=== PATIENT | male | born 1990 | race Caucasian/White ===

== ENCOUNTER 2022-05-25 04:33 | Emergency (ER) | payer MEDICAID ==
[~2022-05-25] VITALS: Ht 177.8 cm; Wt 83.0 kg
[2022-05-25] MEDS ORDERED: ONDANSETRON HCL 4MG/2ML INJ IV STA (05:40)
[2022-05-25] MEDS ORDERED: SODIUM CHLORIDE 0.9% 1,000 ML IV ONE (05:45)
[2022-05-25 06:13] LABS: BASOPHILS % 0.2 % (0.0-2.0); EOSINOPHILS % 0.2 % (0.0-5.0); HEMATOCRIT. 40.6 % (42.0-52.0); HEMOGLOBIN. 13.9 g/dL (14.0-18.0); LYMPHOCYTES % 8.4 % (20.0-50.0); MEAN CORPUSCULAR HEMOGLOBIN 30.2 pg (28.0-32.0); MEAN CORPUSCULAR VOLUME 88.1 fL (80.0-94.0); MEAN PLATELET VOLUME 7.4 fl (7.4-10.4); MONOCYTES % 3.8 % (2.0-8.0); NEUTROPHILS % 87.4 % (40.0-76.0); PLATELET 256 x1000/uL (130-400); RED BLOOD CELL COUNT 4.61 mill/uL (4.7-6.1)
[2022-05-25 06:30] LABS: CHLORIDE 107 mEq/L (98-107)
[2022-05-25 06:38] LABS: ETHANOL BLOOD < 10 mg/dL
[2022-05-25] MEDS ORDERED: NALO4SPR BOTHNSTRLS (07:56)
[2022-05-25 09:00] VITALS: BP 137/82
== END 2022-05-25 09:55 | disposition home or self-care (01) ==
LOC: ER 04:33
DX: T40.411A Poisoning by fentanyl or fentanyl analogs, accidental (unintentional), initial encounter (principal); Y92.89 Other specified places as the place of occurrence of the external cause; R55 Syncope and collapse; R51.9 Headache, unspecified; F17.200 Nicotine dependence, unspecified, uncomplicated; F12.10 Cannabis abuse, uncomplicated
CPT/HCPCS: 36415; 70450; 80053; 80320; 83690; 85025; 93005; 96361; 96374; 99285; J2405; J7030; Z7610; G0480

== ENCOUNTER 2024-04-24 13:37 | Emergency (ER) | payer MEDICAID ==
[~2024-04-24] VITALS: Ht 177.8 cm; Wt 127.0 kg
[~2024-04-24 13:37] MED LIST: NALO4SPR BOTHNSTRLS
[2024-04-24 13:43] VITALS: BP 142/86; PULSE 133; RESP 20; O2SAT 97
[2024-04-24] MEDS ORDERED: LORAZEPAM 2MG/ML INJ IV ONE (14:30)
== END 2024-04-24 14:32 | disposition left against medical advice (07) ==
LOC: ER 13:37
DX: T40.5X1A Poisoning by cocaine, accidental (unintentional), initial encounter (principal); R00.0 Tachycardia, unspecified; Y92.89 Other specified places as the place of occurrence of the external cause
CPT/HCPCS: 93005; 99283